=== PATIENT | female | born 1965 | race Caucasian/White ===

== ENCOUNTER → 2017-03-04 | Outpatient (CLI) | payer OTHER | LOC: BMCIMAGING 15:18 | PROVIDERS: ATTEND Emergency Medicine | DX: S92.352A Displaced fracture of fifth metatarsal bone, left foot, initial encounter for closed fracture (principal) ==

== ENCOUNTER → 2017-03-24 | Outpatient (CLI) | payer OTHER | LOC: BMCIMAGING 13:45 | PROVIDERS: ATTEND Podiatrist Foot & Ankle Surgery | DX: S92.355D Nondisplaced fracture of fifth metatarsal bone, left foot, subsequent encounter for fracture with routine healing (principal) ==

== ENCOUNTER → 2017-04-03 | Outpatient (CLI) | payer OTHER | LOC: FIMAGING 17:59 | PROVIDERS: ATTEND Podiatrist Foot & Ankle Surgery | DX: S92.355D Nondisplaced fracture of fifth metatarsal bone, left foot, subsequent encounter for fracture with routine healing (principal) ==

== ENCOUNTER → 2017-04-24 | Outpatient (CLI) | payer OTHER | LOC: BMCIMAGING 13:35 | PROVIDERS: ATTEND Podiatrist Foot & Ankle Surgery | DX: S92.352D Displaced fracture of fifth metatarsal bone, left foot, subsequent encounter for fracture with routine healing (principal) ==

== ENCOUNTER → 2017-05-15 | Outpatient (CLI) | payer OTHER | LOC: BMCIMAGING 13:30 | PROVIDERS: ATTEND Podiatrist Foot & Ankle Surgery | DX: S92.355D Nondisplaced fracture of fifth metatarsal bone, left foot, subsequent encounter for fracture with routine healing (principal) ==

== ENCOUNTER → 2017-06-12 | Outpatient (CLI) | payer OTHER | LOC: BMCIMAGING 13:43 | PROVIDERS: ATTEND Podiatrist Foot & Ankle Surgery | DX: S92.355D Nondisplaced fracture of fifth metatarsal bone, left foot, subsequent encounter for fracture with routine healing (principal) ==

== ENCOUNTER 2018-09-23 18:10 | Emergency (ER) | payer OTHER ==
--- NOTE | 2018-09-23 18:19 | EDPHY ---
H & P Stated Complaint: R lower quad pain--started with bk pain now rad to RLQ Time Seen by Provider: 09/23/18 18:19 - Medical/Surgical History Hx Asthma: No Hx Chronic Respiratory Disease: No Hx Diabetes: No Hx Cardiac Disease: No Hx Renal Disease: No Hx Cirrhosis: No Hx Alcoholism: No Hx HIV/AIDS: No Hx Splenectomy or Spleen Trauma: No Other PMH: hypothyroid - Social History Smoking Status: Never smoked Constitutional: Initial Vital Signs Temperature (C) 36.5 C 09/23/18 18:15 Heart Rate 81 09/23/18 18:15 Respiratory Rate 16 09/23/18 18:15 Blood Pressure 131/90 H 09/23/18 18:15 O2 Sat (%) 98 09/23/18 18:15 O2 Delivery Mode Room Air Allergies/Adverse Reactions: No Known Allergies Allergy (Unverified 09/23/18 18:14) Home Medications: Medication Instructions Recorded Hydrocodone/APAP 5/325 [Warwick 1 - 2 each PO Q4-6PRN PRN #20 tab 09/23/18 5/325] Levothyroxine 09/23/18 Ondansetron Odt [Zofran Odt 4 mg 4 mg PO Q4 PRN #10 tab 09/23/18 (RX)] Medical Decision Making - Diagnostics Imaging: Discussed imaging studies w/ score caller Radiologist ED Course/Re-evaluation: CHIEF COMPLAINT: Flank pain and right groin pain HISTORY OF PRESENT ILLNESS: Healthy 53-year-old female who this morning noticed that she had some pain in her right flank area. Pain persisted throughout the day and she developed some nausea. The pain seems to change in intensity but never goes away. Within a few hours the pain was radiating toward her right lower quadrant and now radiates to her right groin area. She denies any fevers or chills. She denies any vomiting but is somewhat nauseated when the pain is more severe. She does not want anything for pain right now is the pain is not very bad. She has never had symptoms like this before. She did talk to her sister whose had numerous kidney stones and she feels like it may be a kidney stone. REVIEW OF SYSTEMS: A comprehensive 10 system review of systems is otherwise negative aside from elements mentioned in the history of present illness and medical decision making. PHYSICAL EXAM: HR, BP, O2 Sat, RR. Temp noted General Appearance: Alert, well hydrated, appropriate, and non-toxic appearing. Head: Atraumatic without scalp tenderness or obvious injury Eyes: Pupils equal, round, reactive to light and accommodation, EOMI, no trauma , no injection. Ears: Clear bilaterally, no perforation, normal landmarks Nose: Atraumatic, no rhinorrhea, clear. Throat: There is no erythema or exudates, no lesions, normal tonsils, mucus membranes moist. Neck: Supple, 2+ carotid upstroke, nontender, no lymphadenopathy. Respiratory: No retractions, no distress, no wheezes, and no accessory muscle use. Lungs are clear to auscultation bilaterally. Cardiovascular: Regular rate and rhythm, no murmurs, rubs, or gallops. Bilateral carotid, radial, dorsalis pedis, and posterior tibial pulses intact. Good capillary refill all extremities. Gastrointestinal: Abdomen is soft, nontender, non-distended, no masses, no rebound, no guarding, no peritoneal signs. Musculoskeletal: Normal active ROM of all extremities, atraumatic. Neurological: Alert, appropriate, and interactive. The patient has normal DTRs and non-focal cranial nerves, motor, sensory, and cerebellar exam. Skin: No rashes, good turgor, no nodules on palpation. Past medical history: Denies Past surgical history: Denies Family history: Sister with kidney stones Social history: Single, employed, does not abuse tobacco drugs or alcohol DIAGNOSTICS/PROCEDURES/CRITICAL CARE TIME: Study: CT of the abdomen pelvis without contrast Indication: Right flank right lower quadrant pain indicative possible kidney stone versus diverticulitis versus appendicitis Results: CT scan of the abdomen and pelvis was obtained. The results of the study are no acute processes. The study was read by the radiologist, Dr. Myers. I viewed the images myself on the PACS system. DIFFERENTIAL DIAGNOSIS: The differential diagnosis for the patient's flank pain included but was not limited to musculoskeletal causes, kidney stone, pyelonephritis, shingles, diverticulitis, appendicitis, and aortic aneurysm. MEDICAL DECISION MAKING: This patient has about 12 hr of right flank pain which is now radiating around to her right lower quadrant and toward her groin down low. She denies any fevers or chills. She has a sisters had multiple kidney stones and this sounds familiar to her and she thinks she has 1. Additionally, we will test her urine do a noncontrast CT scan. She does not want any pain meds or anti nausea meds and I will not put an IV in at this time. 19:[address] Myers, radiologist. No evidence of current kidney stone. No evidence of appendicitis. Abnormal right kidney findings, see report for details. Recommend outpatient f/u for US R kidney or CT with contrast. Patient possibly passed a small stone. No evidence of current acute intraabdominal processes. Reassessed. Discussed imaging results. Plan to discharge patient home in good condition. Follow up and return precautions discussed. Her pain has returned somewhat. We will provide prescription for pain medication and antiemetics for symptom control at home. She is comfortable with this plan. 19:[address] Myers. Possible slight enlargement of the appendix noted on imaging. Low suspicion for appendicitis. I too have low suspicion for appendicitis given the patient's history. I discussed this finding with the patient and she understands to return to the emergency department immediately for any worsening of condition. - Data Points Laboratory Results: 09/23/18 18:30 Urine Color PALE YELLOW Urine Appearance CLEAR Urine pH 5.0 (5.0-7.5) Ur Specific [place] 1.009 (1.002-1.030) Urine Protein NEGATIVE (NEGATIVE) Urine Ketones TRACE H (NEGATIVE) Urine Blood NEGATIVE (NEGATIVE) Urine Nitrate NEGATIVE (NEGATIVE) Urine Bilirubin NEGATIVE (NEGATIVE) Urine Urobilinogen NEGATIVE EU EU (0.2-1.0) Ur Leukocyte Esterase NEGATIVE (NEGATIVE) Urine RBC NONE SEEN /hpf /hpf (0-3) Urine WBC 1-3 /hpf /hpf (0-3) Ur Epithelial Cells TRACE /lpf /lpf (NONE-1+) Urine Glucose NEGATIVE (NEGATIVE) Medications Given: Discontinued Medications Hydrocodone Bitart/Acetaminophen (Warwick 5/325mg Prepack#6) 1 btl TAKEHOME EDNOW ONE Stop: 09/23/18 19:10 Last Admin: 09/23/18 19:16 Dose: 1 btl Ondansetron HCl (Zofran Odt 4 Mg Prepack#2) 1 btl TAKEHOME EDNOW ONE Stop: 09/23/18 19:10 Last Admin: 09/23/18 19:16 Dose: 1 btl Departure - Departure Disposition: Home, Routine, Self-Care Clinical Impression: Flank pain Condition: Good Instructions: Hydrocodone/Acetaminophen (By mouth), Ondansetron (By mouth), Flank Pain (ED) Additional Instructions: Follow up with your primary care provider. Take Zofran as prescribed as needed for nausea. Take Warwick as prescribed as needed for severe pain. There was an incidental finding noted on your imaging today, a small abnormality in your right kidney. This does not appear related to your symptoms today. Please follow up with your primary care provider for further evaluation of this including an ultrasound of the right kidney or a CT with IV contrast. Return to the emergency department for fever, worsening severe pain, inability to urinate, or other worsening of condition. Adult Pain & Fever Control: We recommend Acetaminophen (Tylenol) and Ibuprofen (Motrin,Advil) for pain and fever control. When fever is high or pain severe, both drugs can be used at the same time, but at different intervals. Please note the time differences. Your dose is: Acetaminophen 650mg every 4 to 6 hours Ibuprofen 600mg every 6-8 hours with food Note: do not take Acetaminophen with Hydrocodone (Vicodin, Lortab) or Oxycodone (Percocet). These medications also contain Acetaminophen. No more than 3000mg of Acetaminophen should be taken in 24 hours (for an adult). Referrals: Asiya España MD [Primary Care Provider] - As per Instructions Prescriptions: Hydrocodone/APAP 5/325 [Warwick 5/325] 1 - 2 each PO Q4-6PRN PRN #20 tab PRN Reason: Pain, Moderate Ondansetron Odt [Zofran Odt 4 mg (RX)] 4 mg PO Q4 PRN #10 tab PRN Reason: Nausea/Vomiting, Use 1st Report Scribed for: Anurag Mix Report Scribed by: Jenny Elaine Date of Report: 09/23/18 Time of Report: 19:23
[2018-09-23] MEDS ORDERED: ONDANSETRON 4MG PREPACK#2 BTL TAKEHOME ONE (19:09)
[2018-09-23] MEDS ORDERED: HYDROCOD/APAP 5/325 PREPACK#6 BTL TAKEHOME ONE (19:09)
[2018-09-23 19:24] VITALS: BP 121/78
== END 2018-09-23 19:24 | disposition home or self-care (01) ==
DX: R10.31 Right lower quadrant pain (principal)

== ENCOUNTER 2018-09-25 10:58 | Day surgery (SDC) | payer OTHER ==
[2018-09-25] MEDS ORDERED: MIDAZOLAM 2 MG/2 ML VIAL IVP ONE (11:29)
--- NOTE | 2018-09-25 11:30 | PDANEPAE ---
ANE History of Present Illness acute appendicitis ANE Past Medical History - Cardiovascular History Hx Hypertension: No Hx Arrhythmias: No Hx Chest Pain: No Hx Coronary Artery / Peripheral Vascular Disease: No Hx CHF / Valvular Disease: No Hx Palpitations: No - Pulmonary History Hx COPD: No Hx Asthma/Reactive Airway Disease: No Hx Recent Upper Respiratory Infection: No Hx Oxygen in Use at Home: No Hx Sleep Apnea: No - Endocrine History Hx Diabetes: No Hypothyroid: Yes Hyperthyroid: No Obesity: yes ANE Review of Systems Review of systems is: negative Review of Systems: - Exercise capacity Exercise capacity: >=4 METS ANE Patient History - Allergies Allergies/Adverse Reactions: No Known Allergies Allergy (Unverified 09/25/18 11:17) - Home Medications Home medications: home medication list seen and reviewed Home Medications: Levothyroxine 09/23/18 [Last Taken 09/24/18] Ibuprofen 600 mg PO 09/25/18 [Last Taken 09/25/18] - NPO status NPO Since - Liquids (Date): 09/25/18 NPO Since - Liquids (Time): 10:15 NPO Since - Solids (Date): 09/25/18 NPO Since - Solids (Time): 09:00 - Anes Hx Anes Hx: no prior problems - Smoking Hx Smoking Status: Never smoked ANE Labs/Vital Signs - Vital Signs Blood Pressure: 114/96 Heart Rate: 85 Respiratory Rate: 16 O2 Sat (%): 93 Height: 157.48 cm Weight: 95.254 kg ANE Physical Exam - Airway Neck exam: FROM Mallampati Score: Class 3 Mouth exam: normal dental/mouth exam - Pulmonary Pulmonary: no respiratory distress - Cardiovascular Cardiovascular: regular rate and rhythym - ASA Status ASA Status: II ANE Anesthesia Plan Anesthesia Plan: general endotracheal anesthesia Specialized Airway: video laryngoscope
[2018-09-25] MEDS ORDERED: PROPOFOL 200 MG/20 ML VIAL ONE (11:37)
[2018-09-25] MEDS ORDERED: BUPIVACAINE 0.5% 30 ML SDV ONE (11:37)
[2018-09-25] MEDS ORDERED: MIDAZOLAM 2 MG/2 ML VIAL ONE (11:37)
[2018-09-25] MEDS ORDERED: fentaNYL 100 MCG/2 ML INJ ONE ×2 (11:37)
[2018-09-25] MEDS ORDERED: LIDOCAINE 2% 5 ML SDV ONE (11:38)
[2018-09-25] MEDS ORDERED: KETOROLAC 30 MG/1 ML SDV ONE (11:40)
[2018-09-25] MEDS ORDERED: ONDANSETRON 4 MG/2 ML VIAL ONE ×2 (11:40→13:20)
[2018-09-25] MEDS ORDERED: ROCURONIUM 50 MG/5 ML VIAL ONE (11:40)
[2018-09-25] MEDS ORDERED: LR 1,000 ML IV ONE (11:40)
[2018-09-25] MEDS ORDERED: SUGAMMADEX SODIUM 200 MG/2 ML VIAL IVP ONE (11:40)
[2018-09-25] MEDS ORDERED: DEXAMETHASONE 4 MG/ML VIAL ONE (11:40)
[2018-09-25] MEDS ORDERED: SUCCINYLCHOLINE CHLORIDE 200 MG/10 ML SYR IVP ONE (11:44)
[2018-09-25] MEDS ORDERED: HYDROCODONE/APAP 5/325 TAB PO PRN (12:05)
[2018-09-25] MEDS ORDERED: ALBUTEROL 3 ML DEYVIAL IH PRN (12:05)
[2018-09-25] MEDS ORDERED: METOCLOPRAMIDE 10 MG/2 ML VIAL IVP PRN (12:05)
[2018-09-25] MEDS ORDERED: HYDROmorphONE/DILAUDID 2 MG/ML INJ IVP PRN (12:05)
[2018-09-25] MEDS ORDERED: ACETAMINOPHEN 500 MG TAB PO PRN (12:05)
[2018-09-25] MEDS ORDERED: PROMETHAZINE HCL 25 MG/ML INJ IVP PRN (12:05)
[2018-09-25] MEDS ORDERED: NALOXONE HCL 0.4 MG/ML INJ IVP PRN (12:05)
[2018-09-25] MEDS ORDERED: oxyCODONE IR 5 MG TAB PO PRN (12:05)
[2018-09-25] MEDS ORDERED: ONDANSETRON 4 MG/2 ML VIAL IVP PRN (12:05)
[2018-09-25] MEDS ORDERED: fentaNYL 100 MCG/2 ML INJ IVP PRN (12:05)
[2018-09-25] MEDS ORDERED: LR 500 ML IV PRN (12:05)
--- NOTE | 2018-09-25 12:05 | POSTANESTH ---
Post Anesthetic Evaluation Cardiovascular Status: Normal, Stable Respiratory Status: Normal, Stable Level of Consciousness/Mental Status: Can Participate in Eval, Mildly Sleepy, Arousable Pain Control: Adequate, Prn Tx Ordered Nausea/Vomiting Control: Adequate, Prn Tx Ordered Complications Possibly Related to Anesthesia: None Noted
--- NOTE | 2018-09-25 12:57 | POSTOPPROG ---
Post Op Note Date of Operation: 09/25/18 Surgeon: Claude Gonzalez Storage Engineer: MONTRELL Philip Anesthesiologist: Dr. Ann Anesthesia: GET(General Endotracheal) Pre-op Diagnosis: Appendicitis Post-op Diagnosis: same Procedure: Lap appy Findings: Gangrenous appendix, no perforation Inf/Abcess present in the surg proc area at time of surgery?: Yes Depth: Organ Space EBL: Minimal
[2018-09-25] MEDS ORDERED: HYDROCODONE/APAP 5/325 TAB ONE (14:56)
[2018-09-25 15:07] VITALS: BP 124/66
--- NOTE | 2018-09-25 15:10 | GOP ---
[f rep st] OPERATIVE REPORT DATE OF OPERATION: 09/25/2018 SURGEON: Zachary Gonzalez MD DOOR FRAME ASSEMBLER MACHINE: Mandy Beltran, MS-3. ANESTHESIA: General endotracheal anesthesia. ANESTHESIOLOGIST: Dr. Ann. PREOPERATIVE DIAGNOSIS: Acute appendicitis. POSTOPERATIVE DIAGNOSIS: Acute appendicitis with gangrenous appendicitis. PROCEDURE PERFORMED: Laparoscopic appendectomy. FINDINGS: The patient had a gangrenous portion of the appendix without evidence of perforation. No other lesions were identified. ESTIMATED BLOOD LOSS: 20 cc. INDICATIONS: A 53-year-old female with a history of abdominal pain. CT scan had initially demonstra tamera a 7 mm appendix with some reactive fluid. An attempt was made at conservative management with an tibiotics. However, the patient progressed in her symptoms. Risks and benefits of procedure were di scussed the patient and her family, their questions were answered, and they wished to proceed. DESCRIPTION OF PROCEDURE: The patient was in the supine position. After the induction of adequate g eneral endotracheal anesthesia, the patient was prepped and draped in the standard surgical fashion. Marcaine 0.5% was injected throughout the infraumbilical area and a 5-mm incision was made. The abd ominal wall was elevated and the Veress needle was inserted. After noting proper pressures, the abdo men was insufflated with carbon dioxide. A 5-mm trocar was passed and the camera followed. There wa s no apparent damage with trocar placement. Two more ports were placed, one 5-mm port in the suprapu bic midline and one 12-mm port in the left lower quadrant. These were both placed under direct visio n after injecting 0.5% Marcaine for local anesthesia. The abdomen was inspected. The base of the appendix was then dissected. A window was opened in the mesentery using blunt dissection. An Endo SALUD stapler with a vascular load was passed across the mes oappendix and fired. A bowel load was then passed across the base of the appendix and fired. The te rminal ileum was seen to be clear of these firings. The appendix was placed into an Endo Catch bag a nd withdrawn through the 12-mm port. The abdomen was then inspected. Good hemostasis was noted. The fascia at the 12-mm port site was cl osed using 0 Vicryl in a [id number] fashion. The wounds were thoroughly irrigated and the skin at all sites was closed with 4-0 Monocryl in a subcuticular stitch. The wounds were sterilely dresse d. The patient was extubated and taken to the PACU in stable condition. COMPLICATIONS: None. DRAINS: None. ADDENDUM: The appendix was withdrawn using a retrieval bag through the 12 mm port. /[id number]/MODL
== END 2018-09-25 16:33 | disposition home or self-care (01) ==
LOC: FSGY 10:58
PROVIDERS: ATTEND Surgery
PROC: 0DTJ4ZZ Resection of Appendix, Percutaneous Endoscopic Approach (ICD-10-PCS; principal; 2018-09-25 13:00)
DX: K35.891 Other acute appendicitis without perforation, with gangrene (principal); F32.9 Major depressive disorder, single episode, unspecified; E78.5 Hyperlipidemia, unspecified; E03.9 Hypothyroidism, unspecified; Z78.0 Asymptomatic menopausal state
CPT/HCPCS: J0330; J1100; J1885; J2250; J2405; J2704; J3010